=== PATIENT | male | born 1960 | race Caucasian/White ===

== ENCOUNTER → 2019-09-18 | Outpatient (REF) | payer OTHER ==
[2019-09-18 16:46] LABS: ALBUMIN 4.8 GM/DL (3.2-5.2); ALT/SGPT 60 U/L (12-78); AMYLASE 25 U/L (25-115); BILIRUBIN,TOTAL 1.2 MG/DL (0.2-1.0); BLOOD UREA NITROGEN 12 MG/DL (7-18); CALCIUM LEVEL 9.8 MG/DL (8.8-10.2); CARBON DIOXIDE LEVEL 33 MEQ/L (21-32); CHLORIDE LEVEL 104 MEQ/L (98-107); CREATININE FOR GFR 0.82 MG/DL (0.70-1.30); GLOMERULAR FILTRATION RATE > 60.0 (>49); GLUCOSE, FASTING 101 MG/DL (70-100); LIPASE 102 U/L (73-393); POTASSIUM SERUM 3.8 MEQ/L (3.5-5.1); SODIUM LEVEL 140 MEQ/L (136-145); TOTAL PROTEIN 7.5 GM/DL (6.4-8.2)
== END ==
LOC: M SFHCCLAY 12:42
PROVIDERS: ATTEND Family Medicine
DX: R19.8 Other specified symptoms and signs involving the digestive system and abdomen (principal)

== ENCOUNTER → 2019-10-24 | Outpatient (REF) | payer OTHER ==
[2019-10-24 16:35] LABS: BLOOD UREA NITROGEN 15 MG/DL (7-18); CALCIUM LEVEL 9.9 MG/DL (8.8-10.2); CARBON DIOXIDE LEVEL 34 MEQ/L (21-32); CHLORIDE LEVEL 102 MEQ/L (98-107); CREATININE FOR GFR 0.85 MG/DL (0.70-1.30); GLOMERULAR FILTRATION RATE > 60.0 (>49); GLUCOSE, FASTING 108 MG/DL (70-100); POTASSIUM SERUM 4.1 MEQ/L (3.5-5.1); SODIUM LEVEL 141 MEQ/L (136-145)
[2019-10-24 16:57] LABS: HEMOGLOBIN A1c 6.5 %
== END ==
LOC: M SFHCCAPE 11:36
PROVIDERS: ATTEND Family Medicine
DX: R73.01 Impaired fasting glucose (principal); I11.9 Hypertensive heart disease without heart failure

== ENCOUNTER → 2019-11-12 | Outpatient (REF) | payer OTHER | LOC: M LABDRAWC 09:09 | PROVIDERS: ATTEND Nurse Practitioner Family | DX: D35.00 Benign neoplasm of unspecified adrenal gland (principal) ==

== ENCOUNTER → 2020-01-28 | Outpatient (REF) | payer OTHER ==
[2020-01-28 11:56] LABS: BLOOD UREA NITROGEN 17 MG/DL (7-18); CALCIUM LEVEL 9.3 MG/DL (8.8-10.2); CARBON DIOXIDE LEVEL 31 MEQ/L (21-32); CHLORIDE LEVEL 104 MEQ/L (98-107); CHOLESTEROL LEVEL 128 MG/DL (<200); CHOLESTEROL RISK RATIO 3.047 (<5); CREATININE FOR GFR 0.79 MG/DL (0.70-1.30); GLOMERULAR FILTRATION RATE > 60.0 (>49); GLUCOSE, FASTING 109 MG/DL (70-100); HDL CHOLESTEROL 42 MG/DL (>40); LDL CHOLESTEROL 71 MG/DL (<100); NON-HDL-C 86 MG/DL; POTASSIUM SERUM 3.7 MEQ/L (3.5-5.1); SODIUM LEVEL 138 MEQ/L (136-145); TRIGLYCERIDES LEVEL 77 MG/DL (<150)
[2020-01-28 12:28] LABS: MALB URINE SIEMENS 7.7 MG/L
[2020-01-28 12:51] LABS: HEMOGLOBIN A1c 6.7 %
== END ==
LOC: M SFHCCLAY 08:47
PROVIDERS: ATTEND Family Medicine
DX: E11.9 Type 2 diabetes mellitus without complications (principal); E78.5 Hyperlipidemia, unspecified; Z80.42 Family history of malignant neoplasm of prostate; Z12.5 Encounter for screening for malignant neoplasm of prostate

== ENCOUNTER → 2020-03-24 | Outpatient (REF) | payer OTHER | LOC: M LAB REF 15:00 | PROVIDERS: ATTEND Surgery | DX: D21.6 Benign neoplasm of connective and other soft tissue of trunk, unspecified (principal) ==

== ENCOUNTER → 2020-07-17 | Outpatient (REF) | payer OTHER ==
[2020-07-17 12:13] LABS: BLOOD UREA NITROGEN 21 MG/DL (7-18); CALCIUM LEVEL 10.3 MG/DL (8.8-10.2); CARBON DIOXIDE LEVEL 32 MEQ/L (21-32); CHLORIDE LEVEL 103 MEQ/L (98-107); CREATININE FOR GFR 0.91 MG/DL (0.70-1.30); GLOMERULAR FILTRATION RATE > 60.0 (>49); GLUCOSE, FASTING 141 MG/DL (70-100); SODIUM LEVEL 140 MEQ/L (136-145)
[2020-07-17 12:37] LABS: HEMOGLOBIN A1c 6.1 %
== END ==
LOC: M SFHCCLAY 07:06
PROVIDERS: ATTEND Family Medicine
DX: E11.9 Type 2 diabetes mellitus without complications (principal)

== ENCOUNTER → 2020-08-24 | Outpatient (REF) | payer OTHER ==
[2020-08-24 12:40] LABS: ALBUMIN 4.2 GM/DL (3.2-5.2); ALT/SGPT 39 U/L (12-78); BILIRUBIN,DIRECT 0.3 MG/DL (0.0-0.2); BILIRUBIN,TOTAL 0.8 MG/DL (0.2-1.0); BLOOD UREA NITROGEN 20 MG/DL (7-18); GLOMERULAR FILTRATION RATE > 60.0 (>49); TOTAL PROTEIN 6.9 GM/DL (6.4-8.2)
[2020-08-24 12:48] LABS: HEPATITIS B SURFACE ANTIGEN NEGATIVE (NEGATIVE)
[2020-08-24 13:16] LABS: HEPATITIS C VIRUS ABY INDEX < 0.0 INDEX (<0.8)
== END ==
LOC: M LABDRAWC 11:18
PROVIDERS: ATTEND Internal Medicine Gastroenterology
DX: R93.3 Abnormal findings on diagnostic imaging of other parts of digestive tract (principal); Q44.6 Cystic disease of liver

== ENCOUNTER → 2020-09-04 | Outpatient (CLI) | payer OTHER ==
[~2020-09-04] MED LIST: PROHANCE 279.3MG/ML 15ML VIAL As Ordered ONE; PROHANCE 279.3MG/ML 5ML VIAL As Ordered ONE
--- NOTE | 2020-09-09 13:42 | REP ---
INDICATION: CYSTIC DISEASE OF LIVER. 59-year-old male with progressively increasing liver lesion. Un clear etiology. COMPARISON: Comparison studies have been retrieved from [facility] dated February 13, 2020 and June 05, 2020. These are a abdominal CT and right upper quadrant ultrasound respectively.. TECHNIQUE: Axial and coronal T1 and T2 weighted scans include sequences with and without contrast. Sequences include spin echo, fast spin echo, diffusion-weighted scans, gradient echo scans, in and out of phase scans, and dynamically acquired post contrast enhanced T1 fat sat images. FINDINGS: Precontrast T2 weighted scans demonstrate 4 separately identifiable T2 hyperintense foci. The most subtle of these is at the dome of the diaphragm in the right lobe measuring 7 mm in greatest diameter. Anteriorly in the left lobe there is a 9 mm T2 hyperintense lesion. Inferiorly in the posterior segment of the right lobe there is a septated 11 mm T2 hyperintensity. The largest lesion is in the left hepatic lobe which appears to be septated and lobulated in contour. This measures 4.5 cm in greatest diameter. Review of the CT study shows each of these lesions is visible on CT images. They are low-density without evidence of contrast enhancement. The left lobes liver cyst measured 4.2 cm in greatest diameter on axial images. This cyst measured 4.5 cm in greatest diameter on ultrasound. Each of these T2 hyperintense lesions show homogeneous internal signal intensity except for the the septations. They are low in T1 signal intensity and none of these show any evidence of contrast enhancement. There consistent with benign cysts. No hepatic mass lesion is observed. No pancreatic mass lesion is seen. There is a right adrenal adenoma showing classic signal dropout on the out of phase sequence indicating intralesional fat. This measures 18 mm in greatest diameter. There is a similar adenoma on the left adrenal gland 14 mm in diameter. There is a tiny cortical cyst in the right kidney. No pancreatic abnormality is seen. No definite abnormality noted in the gallbladder by MR. No upper abdominal or retroperitoneal mass or adenopathy is seen. IMPRESSION: Multiple benign hepatic cysts, the largest of which is 4.5 cm in diameter. This is unchanged in diameter from the comparison sonogram of 05 June 2020. Small bilateral benign adrenal adenomas are noted. <Electronically signed by Corey Campos > 09/09/20 [id number]
== END ==
LOC: M RAD 13:53
PROVIDERS: ATTEND Internal Medicine Gastroenterology
DX: Q44.6 Cystic disease of liver (principal)
CPT/HCPCS: 74183; A9576

== ENCOUNTER → 2020-10-30 | Outpatient (REF) | payer OTHER ==
[2020-10-30 12:25] LABS: BLOOD UREA NITROGEN 16 MG/DL (7-18); CALCIUM LEVEL 9.2 MG/DL (8.8-10.2); CARBON DIOXIDE LEVEL 34 MEQ/L (21-32); CHLORIDE LEVEL 107 MEQ/L (98-107); CHOLESTEROL LEVEL 139 MG/DL (<200); CHOLESTEROL RISK RATIO 2.673 (<5); CREATININE FOR GFR 0.76 MG/DL (0.70-1.30); GLOMERULAR FILTRATION RATE > 60.0 (>49); GLUCOSE, FASTING 126 MG/DL (70-100); HDL CHOLESTEROL 52 MG/DL (>40); LDL CHOLESTEROL 71 MG/DL (<100); NON-HDL-C 87 MG/DL; SODIUM LEVEL 144 MEQ/L (136-145); TRIGLYCERIDES LEVEL 81 MG/DL (<150)
[2020-10-30 13:49] LABS: HEMOGLOBIN A1c 6.4 %
== END ==
LOC: M SFHCCLAY 07:20
PROVIDERS: ATTEND Family Medicine
DX: E11.9 Type 2 diabetes mellitus without complications (principal); E78.5 Hyperlipidemia, unspecified; I11.9 Hypertensive heart disease without heart failure; R97.20 Elevated prostate specific antigen [PSA]

== ENCOUNTER → 2020-11-02 | Outpatient (REF) | payer OTHER ==
[2020-11-03 13:07] LABS: CREATININE, URINE 28.3 MG/DL; MALB URINE SIEMENS 5.7 MG/L; MAU/CREAT RATIO 20.1 MCG/MG (0.0-30.0)
== END ==
LOC: M SFHCCLAY 10:59
PROVIDERS: ATTEND Family Medicine
DX: E11.9 Type 2 diabetes mellitus without complications (principal)

== ENCOUNTER → 2020-12-15 | Outpatient (REF) | payer OTHER | LOC: M LABDRAWC 11:51 | PROVIDERS: ATTEND Internal Medicine Endocrinology, Diabetes & Metabolism | DX: D35.00 Benign neoplasm of unspecified adrenal gland (principal) ==

== ENCOUNTER → 2020-12-17 | Outpatient (REF) | payer OTHER ==
[2020-12-17 12:35] LABS: BASO % 0.7 % (0.0-1.0); EOS # 0.3 10^3/uL (0.0-0.5); EOS % 5.5 % (0.0-3.0); HEMATOCRIT 45.7 % (42.0-52.0); LYMPH % 16.2 % (24.0-44.0); MEAN CORPUSCULAR VOLUME 91.4 fl (80.0-96.0); MONO # 0.5 10^3/uL (0.0-0.8); NEUTROPHILS # 4.1 10^3/uL (1.5-8.5); NEUTROPHILS % 69.4 % (36.0-66.0); PLATELET COUNT, AUTOMATED 173 10^3/uL (150-450); WHITE BLOOD COUNT 5.9 10^3/uL (4.0-10.0)
[2020-12-17 13:24] LABS: ALBUMIN 4.2 GM/DL (3.2-5.2); PERCENT SATURATION 26.9 % (19.7-50.0); THYROID STIMULATING HORMONE 1.06 uIU/ML (0.358-3.740)
[2020-12-17 14:26] LABS: HEMOGLOBIN A1c 6.4 %
== END ==
LOC: M LABDRAWC 11:35
PROVIDERS: ATTEND Orthopaedic Surgery
DX: Z01.818 Encounter for other preprocedural examination (principal); M25.551 Pain in right hip; M16.11 Unilateral primary osteoarthritis, right hip

== ENCOUNTER → 2021-02-12 | Outpatient (REF) | payer OTHER ==
[2021-02-12 18:14] LABS: APPEARANCE, URINE CLEAR (CLEAR); BACTERIA, URINE AUTO NEGATIVE (NEGATIVE); BILIRUBIN, URINE AUTO NEGATIVE (NEGATIVE); BLOOD, URINE BLOOD NEGATIVE (NEGATIVE); COLOR, URINE YELLOW (YELLOW); GLUCOSE, URINE (UA) AUTO NEGATIVE (NEGATIVE); KETONE, URINE AUTO NEGATIVE (NEGATIVE); LEUKOCYTE ESTERASE, URINE AUTO TRACE (NEGATIVE); MUCUS, URINE SMALL (NEGATIVE); NITRITE, URINE AUTO NEGATIVE (NEGATIVE); PROTEIN, URINE AUTO NEGATIVE (NEGATIVE); RBC, URINE AUTO 0 /HPF (0-3); SPECIFIC GRAVITY URINE AUTO 1.016 (1.002-1.035); SQUAMOUS EPITHELIAL CELL UR AU 0 /HPF (0-6); UROBILINOGEN, URINE AUTO 0.2 mg/dL (0.0-2.0); WBC, URINE AUTO 3 /HPF (0-3)
== END ==
LOC: M SMT 17:15
PROVIDERS: ATTEND Nurse Practitioner Family
DX: R39.12 Poor urinary stream (principal)

== ENCOUNTER → 2021-03-17 | Outpatient (CLI) | payer OTHER ==
--- NOTE | 2021-03-17 08:19 | REP ---
INDICATION: OTH SPECIFIED DX OF GALLBLADDER COMPARISON: Correlation with MRI dated 09/04/[address] dated 02/13/2020. Previous abdominal ultrasound dated 06/05/2020. TECHNIQUE: Real time connolly scale ultrasound examination using curved array transducer. FINDINGS: Liver is mildly echogenic suggesting subtle fatty infiltration and includes a 4.1 x 3.6 x 4.7 cm septated cyst in the left lobe. Gallbladder includes multiple small benign appearing presumed polyps measuring up to 4 mm. No gallstones, wall thickening, or pericholecystic fluid. No evidence for biliary ductal dilatation and the common bile duct measures 4.5 mm diameter. The pancreas is incompletely evaluated due to interposed bowel gas but visualized portions appear normal. Right kidney is normal in reniform shape without hydronephrosis and measures 12.3 x 5.4 x 6.9 cm with subcentimeter lower pole cyst. No ascites. IMPRESSION: 1. Hepatosteatosis and septated 4.7 cm hepatic cyst in the left lobe. 2. Few presumed gallbladder polyps up to 4 mm. 3. Subcentimeter renal cyst. <Electronically signed by Arden Nash > 03/17/21 [id number]
== END ==
LOC: M RAD 07:01
PROVIDERS: ATTEND Surgery
DX: K82.8 Other specified diseases of gallbladder (principal); K76.89 Other specified diseases of liver

== ENCOUNTER → 2021-05-07 | Outpatient (REF) | payer OTHER ==
[2021-05-07 17:10] LABS: BLOOD UREA NITROGEN 16 MG/DL (7-18); CALCIUM LEVEL 9.8 MG/DL (8.8-10.2); CARBON DIOXIDE LEVEL 30 MEQ/L (21-32); CHLORIDE LEVEL 105 MEQ/L (98-107); CREATININE FOR GFR 0.88 MG/DL (0.70-1.30); GLOMERULAR FILTRATION RATE > 60.0 (>49); GLUCOSE, FASTING 121 MG/DL (70-100); POTASSIUM SERUM 3.9 MEQ/L (3.5-5.1); SODIUM LEVEL 141 MEQ/L (136-145)
[2021-05-07 19:30] LABS: HEMOGLOBIN A1c 6.4 %
== END ==
LOC: M SFHCCLAY 11:07
PROVIDERS: ATTEND Family Medicine
DX: E11.9 Type 2 diabetes mellitus without complications (principal)

== ENCOUNTER → 2021-10-14 | Outpatient (REF) | payer OTHER, SELFPAY | LOC: M LABDRAWC 11:10 | PROVIDERS: ATTEND Nurse Practitioner Family | DX: D35.00 Benign neoplasm of unspecified adrenal gland (principal) ==

== ENCOUNTER → 2021-11-02 | Outpatient (REF) | payer BC | LOC: M LABDRAWC 11:20 | PROVIDERS: ATTEND Nurse Practitioner Family | DX: D35.00 Benign neoplasm of unspecified adrenal gland (principal) ==

== ENCOUNTER → 2021-11-10 | Outpatient (REF) | payer BC ==
[2021-11-10 11:28] LABS: BLOOD UREA NITROGEN 20 MG/DL (7-18); CALCIUM LEVEL 9.7 MG/DL (8.8-10.2); CARBON DIOXIDE LEVEL 32 MEQ/L (21-32); CHLORIDE LEVEL 105 MEQ/L (98-107); CHOLESTEROL LEVEL 119 MG/DL (<200); CHOLESTEROL RISK RATIO 2.245 (<5); CREATININE FOR GFR 0.88 MG/DL (0.70-1.30); GLOMERULAR FILTRATION RATE > 60.0 (>49); GLUCOSE, FASTING 105 MG/DL (70-100); HDL CHOLESTEROL 53 MG/DL (>40); LDL CHOLESTEROL 57 MG/DL (<100); NON-HDL-C 66 MG/DL; POTASSIUM SERUM 4.2 MEQ/L (3.5-5.1); SODIUM LEVEL 141 MEQ/L (136-145); TRIGLYCERIDES LEVEL 46 MG/DL (<150)
[2021-11-10 11:43] LABS: MALB URINE SIEMENS 17.1 MG/L
[2021-11-10 12:46] LABS: HEMOGLOBIN A1c 5.9 %
== END ==
LOC: M SFHCCLAY 08:29
PROVIDERS: ATTEND Family Medicine
DX: Z00.00 Encounter for general adult medical examination without abnormal findings (principal); I11.9 Hypertensive heart disease without heart failure; E11.9 Type 2 diabetes mellitus without complications; E78.5 Hyperlipidemia, unspecified; Z80.42 Family history of malignant neoplasm of prostate; Z12.5 Encounter for screening for malignant neoplasm of prostate
CPT/HCPCS: 80048; 80061; 82043; 83036; G0103